=== PATIENT | male | born 1970 | race Two or more races ===

== ENCOUNTER 2019-12-31 16:41 | Outpatient (CLI) | payer OTHER, SELFPAY ==
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
[2019-12-31 17:25] LABS: Estimated Glomerular Filt Rate > 60
== END 2019-12-31 16:42 | disposition home or self-care (01) ==
LOC: ANHIMG 16:47
DX: G93.9 Disorder of brain, unspecified (principal)
CPT/HCPCS: 70553; A9577

== ENCOUNTER 2020-01-13 20:14 | Emergency (ER) | payer OTHER, SELFPAY ==
[2020-01-13 20:23] VITALS: BP 51/27; PULSE 98; RESP 12; O2SAT 98
[2020-01-13] MEDS: SODIUM CHLORIDE 0.9% IV 1,000 ML 999 ML (20:39)
--- NOTE | 2020-01-13 20:43 | ECG_ITS ---
Measurements Intervals [place] Rate: 81 P: 77 ND: 152 QRS: 73 QRSD: 90 T: 72 QT: 364 QTc: 424 Interpretive Statements SINUS RHYTHM ST ELEVATION IN DIFFUSE LEADS, PROBABLY EARLY REPOLARIZATION BORDERLINE ECG Electronically Signed On 01-14-2020 6:39:33 CDT by Albret Barraza D.O.
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
[2020-01-13 22:55] VITALS: BP 119/71; PULSE 73; RESP 18
[2020-01-13 23:22] VITALS: BP 114/68; PULSE 78; RESP 16; TEMP 36.8; O2SAT 99
== END 2020-01-13 23:23 | disposition home or self-care (01) ==
PROVIDERS: Emergency Provider Nurse Practitioner
DX: S00.93XD Contusion of unspecified part of head, subsequent encounter (principal); V29.9XXD Motorcycle rider (driver) (passenger) injured in unspecified traffic accident, subsequent encounter; R94.31 Abnormal electrocardiogram [ECG] [EKG]
CPT/HCPCS: 93005; 96360; 99283; J7030

== ENCOUNTER 2020-01-24 05:39 | Emergency (ER) | payer OTHER, SELFPAY ==
[2020-01-24] VITALS (22 sets, daily range): BP systolic 66–111; BP diastolic 50–84; PULSE 70–101; RESP 12–20; TEMP 36; O2SAT 99–100
--- NOTE | 2020-01-24 06:30 | PC.NURSE ---
Pt. called out stating he was dizzy. Per ERP pt. placed on alarm security or surveillance monitor, IV was initiated and 1L NS fluid bolus was started.
[2020-01-24] MEDS: SODIUM CHLORIDE 0.9% IV 1,000 ML 999 ML (06:45)
[2020-01-24 06:55] LABS: Basophils Percent Auto 0.4 % (0.2-1.2); Eosinophils Absolute Auto 0.1 K/mm3 (0-0.3); Eosinophils Percent Auto 0.8 % (0-4.4); Hematocrit 25.2 % (42.0-52.0); Hemoglobin 8.1 g/dL (14.0-18.0); Immature Granulocyte Absolute 0.03 K/mm3 (0.00-0.031); Immature Granulocyte Percent A 0.4 % (0-0.5); Lymphocytes Absolute Auto 1.56 K/mm3 (0.9-3.2); Lymphocytes Percent Auto 19.9 % (18.3-44.2); Mean Corpuscular HGB Conc 32.1 g/dl (32-36); Mean Corpuscular Hemoglobin 29.7 pg (26-34); Mean Corpuscular Volume 92.3 fl (80-100); Mean Platelet Volume 10.3 fl (7.4-10.4); Monocytes Absolute Auto 0.6 K/mm3 (0.1-0.6); Monocytes Percent Auto 7.5 % (2.6-8.5); Neutrophils Absolute Auto 5.6 K/mm3 (1.3-6.7); Platelet Count Result 226 k/mm3 (150-375); Red Blood Count 2.73 M/mm3 (4.6-6.20); Red Cell Distribution Width 13.3 % (11.5-14.5); White Blood Count 7.8 K/mm3 (4.5-10.0)
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
== END 2020-01-24 09:10 | disposition home or self-care (01) ==
PROVIDERS: Emergency Medicine; Emergency Provider Emergency Medicine
DX: S01.01XD Laceration without foreign body of scalp, subsequent encounter (principal); V29.9XXD Motorcycle rider (driver) (passenger) injured in unspecified traffic accident, subsequent encounter
CPT/HCPCS: 12001; 36415; 85025; 96360; 99283; J7030

== ENCOUNTER 2020-02-03 10:20 | Emergency (ER) | payer OTHER, SELFPAY ==
[2020-02-03 10:40] VITALS: BP 129/83; PULSE 98; RESP 16; TEMP 36.8; O2SAT 100
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
[2020-02-03 12:40] VITALS: BP 116/79; PULSE 67; RESP 16; O2SAT 98
== END 2020-02-03 12:40 | disposition home or self-care (01) ==
PROVIDERS: Emergency Provider Emergency Medicine
DX: S01.00XD Unspecified open wound of scalp, subsequent encounter (principal); V29.9XXD Motorcycle rider (driver) (passenger) injured in unspecified traffic accident, subsequent encounter
CPT/HCPCS: 99281

== ENCOUNTER 2020-07-18 13:33 | Outpatient (CLI) | payer OTHER, SELFPAY | END 2020-07-18 13:34 | disposition home or self-care (01) | LOC: ANHCOVIDVC 13:33 | DX: Z23 Encounter for immunization (principal) | CPT/HCPCS: 0001A; 91300 ==

== ENCOUNTER 2020-08-08 13:02 | Outpatient (CLI) | payer OTHER, SELFPAY | END 2020-08-08 13:03 | disposition home or self-care (01) | LOC: ANHCOVIDVC 13:02 | DX: Z23 Encounter for immunization (principal) | CPT/HCPCS: 0002A; 91300 ==